=== PATIENT | male | born 2000 | race American Indian/Alaskan Native ===

== ENCOUNTER 2020-07-03 18:08 | Emergency (ER) | payer SELFPAY ==
--- NOTE | 2020-07-03 20:38 | XRay Report ---
CHEST 1 VIEW 07/03/2020 8:33 PM INDICATION / CLINICAL INFORMATION: Chest Pain. COMPARISON: None available. FINDINGS: SUPPORT DEVICES: None. HEART / MEDIASTINUM: No significant abnormality. LUNGS / PLEURA: No significant pulmonary or pleural abnormality. No pneumothorax. ADDITIONAL FINDINGS: No significant additional findings. IMPRESSION: 1. No acute findings. Signer Name: Severo Watt MD Signed: 07/03/2020 8:33 PM Workstation Name: [id number]
[2020-07-03 20:49] LABS: Basophils % (Auto) 0.5 % (0.0-1.8); Eosinophils % (Auto) 0.4 % (0.0-4.3); Hematocrit 42.6 % (35.5-45.6); Hemoglobin 14.6 gm/dl (11.8-15.2); Lymphocytes # (Auto) 1.8 K/mm3 (1.2-5.4); Mean Corpuscular HGB Conc 34 % (32-34); Mean Corpuscular Volume 80 fl (84-94); Monocytes # (Auto) 0.4 K/mm3 (0.0-0.8); Monocytes % (Auto) 5.3 % (0.0-7.3); Platelet Count 186 K/mm3 (140-440); Red Cell Distribution Width 12.1 % (13.2-15.2)
[2020-07-03 21:03] LABS: Alanine Aminotransferase 37 units/L (7-56); Albumin 4.5 g/dL (3.9-5); BUN/Creatinine Ratio 11; Blood Urea Nitrogen 11 mg/dL (9-20); Calcium 9.9 mg/dL (8.4-10.2); Hemolysis Index 8
[2020-07-03 21:17] LABS: Bilirubin,Urine NEG (Negative); Blood,Urine NEG (Negative); Color,Urine Yellow (Yellow); Protein,Urine <15 mg/dL mg/dL (Negative); Urobilinogen,Urine < 2.0 mg/dL (<2.0); WBC,Urine < 1.0 /HPF (0.0-6.0)
--- NOTE | 2020-07-04 00:59 | Emergency Department Report ---
ED General Adult HPI - General Chief complaint: Chest Pain Stated complaint: CHEST PAIN/LFT SIDE TROAT PAIN Time Seen by Provider: 07/04/20 00:55 Source: patient Mode of arrival: Ambulatory Limitations: No Limitations - History of Present Illness Initial comments: The patient was evaluated in the emergency department for symptoms described in the history of present illness. He/she was evaluated in the context of the global COVID-19 pandemic, which necessitated consideration that the patient might be at risk for infection with the virus that causes COVID-19. Institutional protocols and algorithms that pertain to the evaluation of patients at risk for COVID-19 are in a state of rapid change based on information released by regulatory bodies including the CDC and federal and state organizations. These policies and algorithms were followed during the patient's care in the emergency department. Please note that these policies, procedures and recommendations changed on a rapid basis. 20-year-old obese -[place] male presents to the emergency room stating he has left neck pain that started today abdominal pain and chest pain has been intermittent for 5 days. Denies any nausea denies any vomiting denies any constipation or diarrhea. Patient states that he had been lifting heavy boxes. Patient states that the pain is intermittent and it responds to Tylenol. Patient denies any fever no chills. Has no past medical history of surgical history of craniotomy. Currently takes no meds no known drug allergies. Onset/Timin -: week(s) Location: chest, abdomen Radiation: non-radiation Severity scale (0 -10): 0 Quality: sharp Consistency: intermittent Improves with: none Worsens with: none Associated Symptoms: chest pain. denies: diaphoresis, fever/chills, headaches, nausea/vomiting, shortness of breath, syncope, weakness Treatments Prior to Arrival: none - Related Data Allergies Allergy/AdvReac Type Severity Reaction Status Date / Time No Known Allergies Allergy Unverified 07/03/20 19:58 ED Review of Systems ROS: Stated complaint: CHEST PAIN/LFT SIDE TROAT PAIN Other details as noted in HPI Comment: All other systems reviewed and negative ED Past Medical Hx - Past Medical History Previous Medical History?: No - Surgical History Past Surgical History?: Yes Additional Surgical History: crainiotomy ED Physical Exam - General Limitations: No Limitations General appearance: alert, in no apparent distress - Head Head exam: Present: atraumatic, normocephalic - Eye Eye exam: Present: normal appearance - ENT ENT exam: Present: mucous membranes moist - Neck Neck exam: Present: normal inspection - Respiratory Respiratory exam: Present: normal lung sounds bilaterally. Absent: respiratory distress - Cardiovascular Cardiovascular Exam: Present: regular rate, normal rhythm. Absent: systolic murmur, diastolic murmur, rubs, gallop - GI/Abdominal GI/Abdominal exam: Present: soft, normal bowel sounds - Rectal Rectal exam: Present: deferred - Extremities Exam Extremities exam: Present: normal inspection - Back Exam Back exam: Present: normal inspection - Neurological Exam Neurological exam: Present: alert, oriented X3 - Psychiatric Psychiatric exam: Present: normal affect, normal mood - Skin Skin exam: Present: warm, dry, intact, normal color. Absent: rash ED Medical Decision Making - Lab Data Result diagrams: 07/03/20 20:09 07/03/20 20:09 - Medical Decision Making 20-year-old obese -[place] male presents to the emergency room stating he has left neck pain that started today abdominal pain and chest pain has been intermittent for 5 days. Denies any nausea denies any vomiting denies any constipation or diarrhea. Patient states that he had been lifting heavy boxes. Patient states that the pain is intermittent and it responds to Tylenol. Patient denies any fever no chills. Has no past medical history of surgical history of craniotomy. Currently takes no meds no known drug allergies. Chest x-ray is negative, EKG within normal limits and labs are all within normal limits. Patient reports to me that he has no pain and no discomfort at this time. Patient will be delivered discharged home in a stable condition to follow-up with your primary care provider. Critical care attestation.: If time is entered above; I have spent that time in minutes in the direct care of this critically ill patient, excluding procedure time. ED Disposition Clinical Impression: Atypical chest pain, Intermittent abdominal pain, Morbid obesity with BMI of 40.0-44.9, adult Disposition: - TO HOME OR SELFCARE Is pt being admited?: No Does the pt Need Aspirin: No Condition: Stable Instructions: Chest Pain (ED) Additional Instructions: Continue with Tylenol ibuprofen follow-up with your primary care provider. Increase your fluid intake. Avoid eating heavy meals before lying down. Referrals: PRIMARY CARE, [Primary Care Provider] - 3-5 Days [facility] [Provider Group] - 3-5 Days Forms: Work/School Release Form(ED)
[2020-07-04 01:18] VITALS: BP 127/80
== END 2020-07-04 01:18 | disposition home or self-care (01) ==
LOC: ED 18:08
DX: R07.89 Other chest pain (principal); R10.9 Unspecified abdominal pain; E66.01 Morbid (severe) obesity due to excess calories; Z68.41 Body mass index [BMI] 40.0-44.9, adult; Z98.890 Other specified postprocedural states
CPT/HCPCS: 36415; 71045; 80053; 81001; 85025; 93005; 99283

== ENCOUNTER 2020-09-20 12:28 | Emergency (ER) | payer SELFPAY ==
[2020-09-20 12:48] VITALS: BP 151/97
--- NOTE | 2020-09-20 12:51 | Emergency Department Report ---
Chief Complaint: Earache Stated Complaint: LT EAR CLOGGED Time Seen by Provider: 09/20/20 12:46 - HPI History of Present Illness: Patient is a 20-year-old male who presents emergency room with complaints of feeling like his left ear is clogged for 3 days. He states that he wears earplugs often and was using a Q-tip to clean out the ears. He has not tried anything else to clean out the ears. He states his hearing feels slightly muffled but he is still able to hear without difficulty. He denies any ear pain, fever, drainage, bleeding. No past medical history. No allergies to medications. Vitals are stable On exam: Non toxic appearing, no acute distress atraumatic, normocephalic normal appearance of the eyes, EOMI, no periorbital edema or ecchymosis moist mucus membranes There is a small amount of wax present in the right ear canal, able to visualize half of the right TM which appears normal in appearance on visualized portion, left ear canal is filled with cerumen, unable to visualize left TM No respiratory distress, no accessory muscle use A&O x4, no focal neuro deficit skin is warm, dry, intact Patient is presenting for cerumen impaction earwax buildup Discussed [id number] treatment with patient discussed the importance of follow-up for ear recheck Advised patient Please use liquid Colace [id number]. Put a small amount of liquid Colace inside the ear canal and use a cotton ball and sit for 10 minutes. After 10 minutes remove the cotton ball and please use Debrox ear cleaning solution kit and repeat the same process to the other ear canal. Please follow-up with a primary care doctor and have the ears reexamined. Ret urn to emergency room for any new or worsening symptoms. Please do not use Q- tips in the ears. Medical screening examination performed and there is no threat to life or limb at this time - Exam Vital Signs: Vital Signs 09/20/20 12:46 Temperature 98.8 F Pulse Rate 64 Respiratory 16 Rate Blood Pressure 151/97 [Right] O2 Sat by Pulse 96 Oximetry MSE screening note: Focused history and physical exam performed. Due to findings the following was ordered: ED Disposition for MSE Clinical Impression: Cerumen impaction Qualifiers: Laterality: left Qualified Code(s): H61.22 - Impacted cerumen, left ear Disposition: Z-07 MED SCREENING EXAM-LEFT Is pt being admited?: No Does the pt Need Aspirin: No Condition: Stable Instructions: Earwax Buildup, Adult Additional Instructions: Please use liquid Colace [id number]. Put a small amount of liquid Colace inside the ear canal and use a cotton ball and sit for 10 minutes. After 10 minutes remove the cotton ball and please use Debrox ear cleaning solution kit and repeat the same process to the other ear canal. Please follow-up with a primary care doctor and have the ears reexamined. Return to emergency room for any new or worsening symptoms. Please do not use Q-tips in the ears. Referrals: EMILEE CORONA MD [Staff Physician] - 3-5 Days [facility] [Provider Group] - 3-5 Days Time of Disposition: 12:53 Print Language: PANAMANIAN
== END 2020-09-20 13:35 | disposition left against medical advice (07) ==
LOC: ED 12:28
DX: Z00.8 Encounter for other general examination (principal); Z53.21 Procedure and treatment not carried out due to patient leaving prior to being seen by health care provider